=== PATIENT | male | born 1985 | race Caucasian/White ===

== ENCOUNTER 2021-07-31 17:58 | Emergency (ER) | payer OTHER, SELFPAY ==
[2021-07-31 18:49] VITALS: BP 120/85; PULSE 72; RESP 16; TEMP 36.6; O2SAT 97; BMI 29.9
--- NOTE | 2021-07-31 19:12 | ED.EYEPROB ---
HPI - Eye Problem General Chief complaint: Eye Problems Stated complaint: FB in eye Time Seen by Provider: 07/31/21 18:32 Source: patient Mode of arrival: ambulatory Limitations: no limitations History of Present Illness HPI Narrative: 36 yo male no known medical problems presents to the ED with right eye pain/redness X 2hours. He states he was working on taking apart a toy car when suddenly a spring came off and hit him in the right eye. He reports constant mild pain/burning/redness but no changes in vision. Denies GUTIERREZ, CP, SOB, double vision, pain with eye movment, fevers, chills, weakness. He wears contacts daily. Patient not a diabetic. MD chief complaint: eye pain, eye redness and eye injury Onset (ago): hour(s) (2) Onset description: sudden Duration: constant Location: right eye Eye Symptoms: burning Place: home Mechanism: direct trauma Severity: mild If Pain, Quality: burning Associated symptoms: none Treatments Prior to Arrival: none Related Data Patient tetanus UTD: No Previous Rx's Medication Instructions Recorded ciprofloxacin HCl 0.3 % eye drops See Rx Instructions .ROUTE 07/31/21 .COMPLEX #10 ml erythromycin 5 mg/gram (0.5 %) eye 0.5 inch OPHTHALMIC (EYE) QID PRN 07/31/21 ointment 7 Days #3.5 g Allergies Allergy/AdvReac Type Severity Reaction Status Date / Time No Known Allergies Allergy Verified 07/31/21 18:52 Review of Systems Review of Systems: Constitutional : No fevers, no chills, No changes in activity, No lethargy, No recent prior head injury, No agitation, No increased fussiness ENT/Mouth : No Ear Pain, No Nasal discharge/drainage Eyes: No Vision changes/blurry/decreased vision, + Eye Pain, No Swelling, + Redness, No Foreign Body, No Photophobia, no discharge, no drainage, no itching, no eyelid edema, + contact lens uses, no recent welding, no bleeding Cardiovascular : No Chest Pain, No SOB Respiratory : No Cough Gastrointestinal : No Nausea, No Vomiting, No abdominal Pain Genitourinary : No Dysuria, No Urinary Frequency, No Urinary Incontinence, No Urgency, No Flank Pain Musculoskeletal : No joint pain, No neck stiffness, No back pain/injury Skin : No lacerations Neuro : No unsteady gait, No Paresthesias, No Loss of Consciousness, No altered mental status, No dizziness, No Headache Yes all other systems are reviewed and are negative [facility] Past Medical History Attestation statement: The following information was validated with the patient. Source: old records reviewed and nursing notes reviewed Medical History No known health problems Social History Social History Advance Directives: No Advance Directives Information Provided: Yes Physical Exam Vital Signs: Vital Signs: Last Vital Signs Temp 97.8 F 07/31/21 18:49 Pulse 72 07/31/21 18:49 Resp 16 07/31/21 18:49 BP 120/85 07/31/21 18:49 Pulse Ox 97 07/31/21 18:49 Body Mass Index 29.9 vital signs have been reviewed as normal and appeared to be correct. Blood pressure normal. Heart rate normal. Respiration rate normal. Temperature normal. Oxygen saturation normal. Appearance: Alert. Oriented X3. No acute distress. Head: Normal external exam. Normocephalic. Atraumatic. Eyes: PERRLA. EOMI. + Sub conjunctiva hemorrhage + uptake overlying iris linear abrasion noted to cornea to right eye. Sclera normal. Eyelids normal. No papilledema noted. Anterior chamber normal. No photophobia noted. Visual acuity to right eye 20/50(with contacts). Visual acuity to left eye 20/30 (with contacts). ENT: EAC normal. TM's Normal. Pharynx normal. Uvula midline. Moist mucous membranes. Neck: Normal inspection. Neck supple. FROM. CVS: Normal heart rate and rhythm. Heart sound normal. No murmurs noted. Pulses normal throughout. Respiratory: No respiratory distress. Painless inspiration. Breath sounds normal. Back: Full range of motion noted. Skin: Skin warm and dry. Normal skin color. Normal skin turgor. No rashes/lesions/lacerations noted. Extremities: No lower extremity edema. Extremities exhibit normal range of motion. Extremities nontender. Neuro: Oriented X 3. No motor deficit. No sensory deficit. Reflexes normal. Course Course Course Narrative: [age] old male with unknown medical history presents to the emergency department with right-sided eye pain X2 hours. He states that he was working on taking apart a toy car, in the spring hit him in the eye. He reports a burning sensation/pain to his right eye that is mild and constant in nature. He denies changes in vision, double vision, and pain with extraocular movements. Daily contact lens wearer. He is not a diabetic. Upon physical examination on there is an evident subconjunctival hemorrhage. Fluorescein staining shows uptake overlying the right eye iris, there is a linear corneal abrasion noted about 1 cm although no FB's noted. Visual acuity to right eye 20/50(with contacts). Visual acuity to left eye 20/30 (with contacts). He was given erythromycin ointment here. Pain was due to mechanical trauma, unlikely that this is acute closed angle glaucoma. He will be discharged home with erythromycin ointment, and ciprofloxacin to cover for Pseudomonas. He has also been instructed to follow-up with ophthalmology. He is advised to return to the emergency department with new or worsening symptoms, or if he experiences severe pain, vision changes MDM - Eye Problem Medical Records Attestation: I reviewed the patient's medical records. Discharge Plan Discharge Clinical Impression: Corneal abrasion, Subconjunctival hemorrhage Patient Disposition: Home, Self-Care Instructions: Corneal Abrasion (ED), Subconjunctival Hemorrhage (ED) Additional Instructions: Use antibiotics as instructed Follow-up with ophthalmology Do not wear contact lenses until you have completed your antibiotic course Return to the emergency department with new or worsening symptoms Prescriptions: New erythromycin 5 mg/gram (0.5 %) ointment 0.5 inch ophthalmic (eye) QID PRN (Reason: Bacterial conjunctivitis) 7 Days Qty: 3.5 RF: 0 ciprofloxacin HCl 0.3 % drops See Rx Instructions .ROUTE .COMPLEX Qty: 10 RF: 0 Referrals: Walter Hansen [Physician] - 2 days Print Language: Beninese
[2021-07-31] MEDS: Tetracaine HCl/PF 0.5% Oph Sol 4 ML DROPS 2 DROP EYE-BOTH (19:15)
[2021-07-31] MEDS: Fluorescein Sodium STRIP 1 STRIP EYE-BOTH (19:16)
[2021-07-31] MEDS: Erythromycin Base 0.5% Oph Oin 1 GM TUBE 1 CM EYE-BOTH (19:16)
[2021-07-31] MEDS: Diphth,Pertus(ACell),Tet Adult 0.5 ML SYRINGE IM (19:55)
== END 2021-07-31 20:00 | disposition home or self-care (01) ==
PROVIDERS: Emergency Provider Emergency Medicine Emergency Medical Services
DX: S05.01XA Injury of conjunctiva and corneal abrasion without foreign body, right eye, initial encounter (principal); H11.31 Conjunctival hemorrhage, right eye; W20.8XXA Other cause of strike by thrown, projected or falling object, initial encounter; Y93.9 Activity, unspecified; Y92.009 Unspecified place in unspecified non-institutional (private) residence as the place of occurrence of the external cause; Y99.9 Unspecified external cause status
CPT/HCPCS: 90471; 90715; 99283; 99284

== ENCOUNTER 2021-09-08 09:31 | Emergency (ER) | payer OTHER, SELFPAY ==
--- NOTE | ~2021-09-08 | XR_ITS ---
EXAMINATION: XR ANKLE, LEFT CLINICAL INFORMATION: Trauma, pain COMPARISON: None TECHNIQUE: AP, lateral, and mortise views of the left ankle. FINDINGS: There is no acute or healing fracture, dislocation, destructive process. The malleoli are intact and the ankle mortise is symmetric. Talar dome shows no osteochondral lesion. There is small incidental corticated ossicle adjacent to tip medial malleolus. There is a bulky benign corticated exostosis from the distal dorsal talus measuring 0.8 x 1.4 cm. The subtalar joint is unremarkable. There are posterior and plantar calcaneal spurs. XR/XR ankle LT min 3V IMPRESSION: No acute bony abnormality. No fracture or dislocation.
[2021-09-08 10:20] VITALS: BP 134/87; PULSE 70; RESP 16; TEMP 36.8; O2SAT 99; BMI 29.3
--- NOTE | 2021-09-08 11:55 | ED_ITS ---
HPI - Extremity Injury (Lower) General Chief Complaint: Extremity Injury, Lower Stated Complaint: Ankle inj Time Seen by Provider: 09/08/21 11:03 Source: patient Mode of arrival: ambulatory Limitations: no limitations History of Present Illness HPI Narrative: 36-year-old male with no past medical history presents to ED for left ankle pain. Patient states yesterday while playing basketball he twisted his ankle and heard a crack in his left ankle. Patient denies falling to the ground. Patient states he has been walking on ankle since incident but has pain on ambulation. Related Data Previous Rx's Medication Instructions Recorded ciprofloxacin HCl 0.3 % eye drops See Rx Instructions .ROUTE 07/31/21 .COMPLEX #10 ml erythromycin 5 mg/gram (0.5 %) eye 0.5 inch OPHTHALMIC (EYE) QID PRN 07/31/21 ointment 7 Days #3.5 g cyclobenzaprine 10 mg tablet 10 mg PO TID PRN 7 Days #21 tab 09/08/21 prednisone 20 mg tablet 40 mg PO DAILY 5 Days #10 tab 09/08/21 Allergies Allergy/AdvReac Type Severity Reaction Status Date / Time No Known Allergies Allergy Verified 07/31/21 18:52 Review of Systems Review of Systems: Yes all other systems are reviewed and are negative Constitutional: Constitutional: Reports as per HPI and Reports no additional constitutional complaints Eyes: Eyes: Reports as per HPI and Reports no additional eye complaints ENT: Reports system reviewed and no additional complaints, except as documented and Reports as per HPI Cardiovascular: Cardiovascular: Reports as per HPI and Reports no additional cardiovascular complaints Respiratory: Respiratory: Reports as per HPI and Reports no additional respiratory complaints Gastrointestinal: Gastrointestinal: Reports as per HPI and Reports no additional gastrointestinal complaints Genitourinary: Genitourinary: Reports no additional male genitourinary complaints and Reports as per HPI Musculoskeletal: Musculoskeletal: Reports no additional musculoskeletal complaints, Reports as per HPI and Reports arthralgias (left ankle pain) Neurologic: Reports system reviewed and no additional complaints, except as documented and Reports as per HPI Psychiatric: Psychiatric: Reports no additional psychiatric complaints and Reports as per HPI Endocrine: Endocrine: Reports no additional endocrine complaints and Reports a s per HPI PMFSH Past Medical History Medical History No known health problems Social History Social History Advance Directives: No Advance Directives Information Provided: No Physical Exam Vital Signs: Vital Signs: Last Vital Signs Temp 98.2 F 09/08/21 10:20 Pulse 70 09/08/21 10:20 Resp 16 09/08/21 10:20 BP 134/87 09/08/21 10:20 Pulse Ox 99 09/08/21 10:20 Body Mass Index 29.3 Const: General: cooperative, healthy appearing, comfortable, no acute distress, well developed, alert, awake and Physically active Orientation/consciousness: patient oriented x3 HENMT: Head: Yes normal to inspection, Yes No palpable skull fracture present, Yes normocephalic, Yes atraumatic and No abrasion Eyes: General: appearance normal, both eyes and all related structures Neck: Neck: Yes normal visual inspection, Yes full ROM, Yes no lymphadenopathy, Yes no meningeal signs, Yes trachea midline, Yes supple, No anterior neck swelling and No tender Chest: Chest palpation & inspection: normal inspection of the chest and normal palpation of entire chest wall Resp: Effort & Inspection: normal respiratory effort and able to speak in complete sentences Auscultation: clear to auscultation bilaterally Cardio: Jugular venous distension: no JVD Heart sounds: S1 normal heart sound present and S2 normal heart sound present GI: Inspection: Yes normal to inspection and No abdominal wall ecchymosis Palpation (GI): Soft to palpation, not firm, nontender, no guarding and not rigid : General: No CVA tenderness and Yes no CVA tenderness Back/Spine/Pelvis: Back: no CVA tenderness, No CVA tenderness and No back tenderness Skin: General skin exam: no rashes or lesions noted and elasticity normal Neuro: General: patient oriented x3, gait normal, no meningeal signs and CN's II-XI intact bilaterally Cranial nerves: Yes CN's II-XII intact bilaterally Extrem: General: Yes normal to inspection and Yes full ROM Ankle/foot/toe images: 1. Positive of area of tenderness without any ecchymosis or erythema. Negative for crepitus. Achilles tendon intact. Patient able to plantar and dorsiflex without any difficulty. Motor/neuro/vascular exam intact. Negative for any open wounds or ulcers. Psych: Appearance: grossly normal, well kempt and not disheveled Course Course Course Narrative: Patient sent for x-ray by haley baker. Reevaluation(s) Reevaluation #1: Ankle x-ray negative for fracture. Patient does not want time off because he has to work. Patient requesting walking boot due to him standing on his foot for 12 hours. Time: 12:00 MDM - Extremity Injury (Lower) MDM Narrative Medical decision making narrative: Ankle sprain/foot sprain Discharge Plan Discharge Clinical Impression: Ankle sprain, Foot sprain Patient Disposition: Home, Self-Care Instructions: Ankle Sprain (ED), Foot Sprain (ED), Walking Boot (ED) Additional Instructions: You will be discharged with steroids and muscle relaxer. Continue taking Advil at home for pain relief. Return to the ED for worsening pain, swelling, redness, bluish black discoloration, inability to walk, fever, chest pain, shortness of breath, chills, numbness/tingling or any other concerning symptoms. At home recommend rest, elevation, and ice. Patient follow-up primary care provider and does no improvement in pain. Do not take cyclobenzaprine at work or while driving. Prescriptions: New prednisone 20 mg tablet 40 mg PO DAILY 5 Days Qty: 10 RF: 0 cyclobenzaprine 10 mg tablet 10 mg PO TID PRN (Reason: muscle spasm) 7 Days Qty: 21 RF: 0 No Action erythromycin 5 mg/gram (0.5 %) ointment 0.5 inch ophthalmic (eye) QID PRN (Reason: Bacterial conjunctivitis) 7 Days Qty: 3.5 RF: 0 ciprofloxacin HCl 0.3 % drops See Rx Instructions .ROUTE .COMPLEX Qty: 10 RF: 0 Interventions: ED Discharge Assessment Last Done: 09/08/21 12:10 Discharge Date/Time: 09/08/21 12:15 Print Language: Frisian
== END 2021-09-08 12:15 | disposition home or self-care (01) ==
PROVIDERS: Emergency Provider Emergency Medicine
DX: S93.402A Sprain of unspecified ligament of left ankle, initial encounter (principal); S96.912A Strain of unspecified muscle and tendon at ankle and foot level, left foot, initial encounter; X50.1XXA Overexertion from prolonged static or awkward postures, initial encounter; Y93.67 Activity, basketball; Y92.310 Basketball court as the place of occurrence of the external cause; Y99.9 Unspecified external cause status
CPT/HCPCS: 73610; 99283; 99284

== ENCOUNTER 2021-10-18 12:09 | Outpatient (REF) | payer OTHER, SELFPAY ==
[2021-10-18 16:37] LABS: Binax Now Covid-19 Ag Positive (Negative)
[2021-10-18 16:38] LABS: Binax Internal Control QC Valid; Binax Lot number: 9864
== END 2021-10-18 12:10 | disposition home or self-care (01) ==
LOC: HO.LAB 12:09
PROVIDERS: Visit Provider Internal Medicine
DX: Z20.822 Contact with and (suspected) exposure to COVID-19 (principal)
CPT/HCPCS: 36415; C9803

== ENCOUNTER 2022-01-25 07:55 | Emergency (ER) | payer OTHER, SELFPAY ==
[2022-01-25 08:00] VITALS: BP 120/86; PULSE 86; RESP 16; TEMP 36.6; O2SAT 97; BMI 30.2
--- NOTE | 2022-01-25 08:14 | ECG_ITS ---
Test Reason : AP Blood Pressure : / mmHG Vent. Rate : 067 BPM Atrial Rate : 067 BPM P-R Int : 172 ms QRS Dur : 096 ms QT Int : 394 ms P-R-T Axes : 028 040 036 degrees QTc Int : 416 ms Normal sinus rhythm with sinus arrhythmia Normal ECG No previous ECGs available Referred By: Fidelia Ferguson Electronically Signed By:CHULA MCLEOD MD
[2022-01-25 08:16] VITALS: BP 138/90; PULSE 78; RESP 16; TEMP 36.4; O2SAT 97
--- NOTE | 2022-01-25 08:16 | ED.ABDPAIN ---
HPI - Abdominal Pain General Chief Complaint: Abdominal Pain Stated Complaint: Fever/Abd pain/Back pain Time Seen by Provider: 01/25/22 08:11 Source: patient Mode of arrival: ambulatory Limitations: no limitations History of Present Illness HPI narrative: Patient comes emergency room complaining abdominal pain, diarrhea for 2 days. Also complaining chills. Patient states that all his symptoms started after eating fish 2 days ago. Patient denies vomiting, complaining of nausea. Denies UTI symptoms. Also, patient's family check his blood sugar this morning, it was over 200 fasting. Patient does not have a primary care physician, patient has never been diagnosed withdiabetes in the past. Related Data Previous Rx's Medication Instructions Recorded ciprofloxacin HCl 0.3 % eye drops See Rx Instructions .ROUTE 07/31/21 .COMPLEX #10 ml erythromycin 5 mg/gram (0.5 %) eye 0.5 inch OPHTHALMIC (EYE) QID PRN 07/31/21 ointment 7 Days #3.5 g cyclobenzaprine 10 mg tablet 10 mg PO TID PRN 7 Days #21 tab 09/08/21 prednisone 20 mg tablet 40 mg PO DAILY 5 Days #10 tab 09/08/21 metformin 500 mg tablet 500 mg PO BID 30 Days #60 tab 01/25/22 Allergies Allergy/AdvReac Type Severity Reaction Status Date / Time No Known Allergies Allergy Verified 07/31/21 18:52 Review of Systems Review of Systems Constitutional : No Weight loss, No Fever, complaining of Chills, No Night Sweats, No Fatigue, No Malaise ENT/Mouth : No Hearing loss, No Ear Pain, No Nasal Congestion, No Sinus Pain, No Hoarseness, No sore throat, No Rhinorrhea, No Swallowing Difficulty Eyes: No Eye Pain, No Swelling, No Redness, No Foreign Body, No Discharge, No Vision Changes Cardiovascular : No Chest Pain, No SOB, No Dyspnea on Exertion, No Orthopnea, No Edema, No Palpitations Respiratory : No Cough, No Sputum, No Wheezing, No Smoke Exposure, No Dyspnea Gastrointestinal : Complaining of nausea, no vomiting, complaining of 1 episode of diarrhea Genitourinary : no irregular bleeding, No Dysuria, No Urinary Frequency, No Hematuria, No Urinary Incontinence, No Urgency, No Flank Pain, No Urinary Flow Changes, No Hesitancy Musculoskeletal : No joint pain, No Myalgias, No Joint Swelling Skin : No Skin Lesions, No rash Neuro : No Weakness, No Numbness, No Paresthesias, No Loss of Consciousness, No Dizziness, No Headache Psych : No Anxiety/Panic, No Depression, No SI/HI/AH/VH, No Social Issues, Heme/Lymph: No Bruising, No Bleeding,No Lymphadenopathy Endocrine : No Polyuria, No Polydipsia, No Temperature Intolerance [facility] Past Medical History Medical History No known health problems Social History Social History Alcohol intake: current Alcohol intake frequency: holidays/special occasions only Patient Tobacco Use Status: Never used Tobacco Use of substances other than those prescribed or required for medical reasons: No Advance Directives: No Advance Directives Information Provided: No Physical Exam ED Vital Signs: Vital Signs - 24 hr 01/25/22 08:00 01/25/22 08:16 Temperature 97.8 F 97.5 F Pulse Rate 86 78 Respiratory Rate 16 16 Blood Pressure 120/86 138/90 H Pulse Oximetry 97 97 BMI result Body Mass Index 30.2 Course Course Course Narrative: I discussed the labs with the patient. Patient may have gastroenteritis from something he ate. However, A1c was checked, A1c is 11, blood sugar 277. I discussed with the patient increasing exercise to 300 minutes/week, diet improvement, and even starting metformin. Patient agrees with plan. Patient is to follow up with the primary care physician MDM - Abdominal Pain Lab Data Result diagrams: 01/25/22 08:34 01/25/22 08:34 Labs: Lab Results 01/25/22 01/25/22 01/25/22 Range/Units 08:34 08:34 08:34 WBC 6.7 (4.8-10.8) X10*3/uL RBC 5.86 H (4.60-5.80) X10*6/uL Hgb 16.9 (14.0-18.0) g/dl Hct 48.3 (42.0-52.0) % MCV 82.4 (80.0-98.0) fL MCH 28.8 (27.0-33.0) pg MCHC 35.0 (31.0-36.0) g/dl RDW 11.7 (11.0-16.0) % Plt Count 159 L (160-400) X10*3/uL MPV 10.3 (9.4-12.4) fL Immature Gran % (Auto) 0.5 H (0.0-0.4) % Neut % (Auto) 67.8 (45-73) % Lymph % (Auto) 19.2 L (20-40) % Glascock % (Auto) 11.3 H (2-11) % Eos % (Auto) 0.9 (0-4) % Baso % (Auto) 0.3 (0-2) % Lymph # (Auto) 1.3 (1.2-4.9) X10*3/uL Glascock # (Auto) 0.8 (0.1-1.2) X10*3/uL Eos # (Auto) 0.1 (0.0-0.4) X10*3/uL Baso # (Auto) 0.0 (0.0-0.2) X10*3/uL Abs Immat Gran (auto) 0.03 (0.00-0.03) X10*3/uL Absolute Neuts (auto) 4.5 (2.0-8.3) x10*3/uL Absolute Nucleated RBC 0.000 (0.0-0.012) X10*3/uL Nucleated RBC % (auto) 0.0 (0.0-0.2) /100WBC Sodium 136 (135-145) mmol/L Potassium 3.8 (3.3-5.1) mmol/L Chloride 101 (96-108) mmol/L Carbon Dioxide 24 (22-29) mmol/L Anion Gap 15 (12-20) BUN 13 (9-16) mg/dL Creatinine 0.82 (0.5-1.4) mg/dL Estim Creat Clear Calc 158.8 Estimated GFR > 60 Random Glucose 277 H (60-115) mg/dL Estimat Average Glucose 269 mg/dL Hemoglobin A1c % 11.0 % Calcium 9.1 (8.4-10.2) mg/dL Total Bilirubin 0.7 (0.0-1.0) mg/dL Direct Bilirubin 0.4 (0.0-0.5) mg/dL AST 30 (5-37) U/L ALT 64 H (0-40) U/L Alkaline Phosphatase 95 (39-117) U/L Total Protein 7.2 (6.5-8.0) g/dL Albumin 4.4 (3.5-5.0) g/dL COVID-19 (KAYLAN) (Negative) COVID-19 Clin Com Influenza Type A (ASHANTI) (Negative) Influenza Type B (ASHANTI) (Negative) Influenza A & B Note 01/25/22 01/25/22 Range/Units 08:34 08:34 WBC (4.8-10.8) X10*3/uL RBC (4.60-5.80) X10*6/uL Hgb (14.0-18.0) g/dl Hct (42.0-52.0) % MCV (80.0-98.0) fL MCH (27.0-33.0) pg MCHC (31.0-36.0) g/dl RDW (11.0-16.0) % Plt Count (160-400) X10*3/uL MPV (9.4-12.4) fL Immature Gran % (Auto) (0.0-0.4) % Neut % (Auto) (45-73) % Lymph % (Auto) (20-40) % Glascock % (Auto) (2-11) % Eos % (Auto) (0-4) % Baso % (Auto) (0-2) % Lymph # (Auto) (1.2-4.9) X10*3/uL Glascock # (Auto) (0.1-1.2) X10*3/uL Eos # (Auto) (0.0-0.4) X10*3/uL Baso # (Auto) (0.0-0.2) X10*3/uL Abs Immat Gran (auto) (0.00-0.03) X10*3/uL Absolute Neuts (auto) (2.0-8.3) x10*3/uL Absolute Nucleated RBC (0.0-0.012) X10*3/uL Nucleated RBC % (auto) (0.0-0.2) /100WBC Sodium (135-145) mmol/L Potassium (3.3-5.1) mmol/L Chloride (96-108) mmol/L Carbon Dioxide (22-29) mmol/L Anion Gap (12-20) BUN (9-16) mg/dL Creatinine (0.5-1.4) mg/dL Estim Creat Clear Calc Estimated GFR Random Glucose (60-115) mg/dL Estimat Average Glucose mg/dL Hemoglobin A1c % % Calcium (8.4-10.2) mg/dL Total Bilirubin (0.0-1.0) mg/dL Direct Bilirubin (0.0-0.5) mg/dL AST (5-37) U/L ALT (0-40) U/L Alkaline Phosphatase (39-117) U/L Total Protein (6.5-8.0) g/dL Albumin (3.5-5.0) g/dL COVID-19 (KAYLAN) Negative (Negative) COVID-19 Clin Com See Note Influenza Type A (ASHANTI) Negative (Negative) Influenza Type B (ASHANTI) Negative (Negative) Influenza A & B Note See Note Discharge Plan Discharge Clinical Impression: Vomiting, Newly diagnosed diabetes Patient Disposition: Home, Self-Care Instructions: Type 2 Diabetes in Adults: New Diagnosis (ED), Meal Planning with the Plate Method (DC), Meal Planning with Diabetes Exchanges (DC), Mediterranean Diet (DC), What to Do if Your Blood Sugar is Low (ED) Additional Instructions: Please increase your physical activity to 300 minutes per week. Try to follow a healthy diet. Please call as soon as possible a primary care physician to establish care. For the 1st week, take metformin once a day, then as prescribed (twice a day). If you have any worsening or new symptoms, please return to the emergency room or call 911 Prescriptions: New metformin 500 mg tablet 500 mg PO BID 30 Days Qty: 60 2RF No Action prednisone 20 mg tablet 40 mg PO DAILY 5 Days Qty: 10 0RF cyclobenzaprine 10 mg tablet 10 mg PO TID PRN (Reason: muscle spasm) 7 Days Qty: 21 0RF Rx Instructions: side effect is drowsiness. Do not take at work or while driving. erythromycin 5 mg/gram (0.5 %) ointment 0.5 inch ophthalmic (eye) QID PRN (Reason: Bacterial conjunctivitis) 7 Days Qty: 3.5 0RF ciprofloxacin HCl 0.3 % drops See Rx Instructions .ROUTE .COMPLEX Qty: 10 0RF Rx Instructions: put 1-2 drps in affected eye(s) every 2hr up to 8 times/day x2days; then 4 times/day x5days
[2022-01-25 08:38] LABS: MANUAL DIFF FLAG NO
[2022-01-25 08:40] LABS: Basophils Percent Auto 0.3 % (0-2); Eosinophils Absolute Auto 0.1 X10*3/uL (0.0-0.4); Eosinophils Percent Auto 0.9 % (0-4); Hematocrit 48.3 % (42.0-52.0); Hemoglobin 16.9 g/dl (14.0-18.0); Imm Gran Abs Auto 0.03 X10*3/uL (0.00-0.03); Imm Gran Pct Auto 0.5 % (0.0-0.4); Lymphocytes Absolute Auto 1.3 X10*3/uL (1.2-4.9); Lymphocytes Percent Auto 19.2 % (20-40); Mean Corpuscular Hemoglobin 28.8 pg (27.0-33.0); Mean Corpuscular Volume 82.4 fL (80.0-98.0); Mean Platelet Volume 10.3 fL (9.4-12.4); Monocytes Absolute Auto 0.8 X10*3/uL (0.1-1.2); Monocytes Percent Auto 11.3 % (2-11); Neutrophils Absolute Auto 4.5 x10*3/uL (2.0-8.3); Neutrophils Percent Auto 67.8 % (45-73); Platelet Count 159 X10*3/uL (160-400); Red Blood Count 5.86 X10*6/uL (4.60-5.80); Red Cell Distribution Width 11.7 % (11.0-16.0); White Blood Count 6.7 X10*3/uL (4.8-10.8)
[2022-01-25] MEDS: 0.9 % Sodium Chloride 1,000 ML 999 ML IVCONT (08:43)
[2022-01-25 08:58] LABS: Alanine Aminotransferase 64 U/L (0-40); Albumin Level 4.4 g/dL (3.5-5.0); Alkaline Phosphatase 95 U/L (39-117); Anion Gap 15 (12-20); Aspartate Amino Transferase 30 U/L (5-37); Bilirubin Direct 0.4 mg/dL (0.0-0.5); Bilirubin Total 0.7 mg/dL (0.0-1.0); Blood Urea Nitrogen 13 mg/dL (9-16); Calcium 9.1 mg/dL (8.4-10.2); Carbon Dioxide 24 mmol/L (22-29); Chloride 101 mmol/L (96-108); Creatinine Clr Calc Pharmacy 158.8; Estimated Glomerular Filt Rate > 60; Glucose Random 277 mg/dL (60-115); Potassium 3.8 mmol/L (3.3-5.1); Sodium 136 mmol/L (135-145); Total Protein 7.2 g/dL (6.5-8.0)
[2022-01-25 09:03] LABS: COVID-19 Test Negative (Negative); IDNOW Serial# 16C4AD1C; Influenza A Negative (Negative); Influenza B2 Negative (Negative)
[2022-01-25 09:04] LABS: Estimated Average Glucose 269 mg/dL
[2022-01-25 10:32] VITALS: BP 129/88; PULSE 60; RESP 17; TEMP 37; O2SAT 97
== END 2022-01-25 10:45 | disposition home or self-care (01) ==
PROVIDERS: Emergency Provider Emergency Medicine
DX: R10.9 Unspecified abdominal pain (principal); E11.9 Type 2 diabetes mellitus without complications; R50.9 Fever, unspecified; M54.50 Low back pain, unspecified; Z79.899 Other long term (current) drug therapy; Z20.822 Contact with and (suspected) exposure to COVID-19
CPT/HCPCS: 80048; 80076; 83036; 85025; 87502; 87635; 93005; 99283; 99284

== ENCOUNTER → 2022-10-15 13:44 | Outpatient (BNVA) | payer OTHER, SELFPAY | PROVIDERS: Visit Provider Urology | DX: Z30.2 Encounter for sterilization (principal); E11.9 Type 2 diabetes mellitus without complications | CPT/HCPCS: 55250 ==

== ENCOUNTER → 2023-01-19 12:59 | Outpatient (BNVA) | payer OTHER, SELFPAY | PROVIDERS: PCP Physician Assistant Surgical; Visit Provider Urology | DX: Z13.89 Encounter for screening for other disorder (principal) ==